=== PATIENT | female | born 1975 | race African-American/Black ===

== ENCOUNTER 2017-11-15 19:04 | Inpatient (IN) | payer BC ==
[~2017-11-15] VITALS: Ht 165.1 cm; Wt 97.1 kg
[~2017-11-15 19:04] MED LIST: ETOMIDATE 2MG/ML 10ML VIAL IV ONE
[2017-11-15] MEDS ORDERED: SUCCINYLCHOLINE CHLORIDE 200MG/10ML VIAL IV ONE (19:15)
[2017-11-15] MEDS ORDERED: ETOMIDATE 2MG/ML 10ML VIAL IV ONE (19:15)
[2017-11-15] MEDS ORDERED: PROPOFOL 10MG/ML 100ML 100 ML IV SCH (19:30)
[2017-11-15 19:49] LABS: CLARITY URINE CLEAR (CLEAR); COLOR URINE YELLOW (YELLOW); KETONES URINE NEGATIVE (NEGATIVE); LEUKOCYTE ESTERASE URINE NEGATIVE (NEGATIVE); NITRITE URINE NEGATIVE (NEGATIVE); OCCULT BLOOD URINE 2+ (NEGATIVE); PROTEIN URINE 1+ (NEGATIVE); SPECIFIC GRAVITY URINE 1.017 (1.005-1.030); UROBILINOGEN URINE 0.2 E.U./dL (0.2-1.0)
[2017-11-15] MEDS ORDERED: LORAZEPAM 2MG/ML CPJ IV ONE (20:00)
[2017-11-15] MEDS ORDERED: MIDAZOLAM HCL 50 MG in DEXTROSE 5% WATER 40 ML IV ONE ×2 (20:00→21:00)
[2017-11-15 20:03] LABS: *AMPHETAMINES SCREEN URINE NEGATIVE (NEGATIVE); *BARBITURATES SCREEN URINE NEGATIVE (NEGATIVE)
[2017-11-15 20:04] LABS: *BENZODIAZEPINES SCREEN URINE NEGATIVE (NEGATIVE); METHADONE URINE SCREEN NEGATIVE (NEGATIVE); OPIATES URINE SCREEN NEGATIVE (NEGATIVE); PHENCYCLIDINE URINE SCREEN NEGATIVE (NEGATIVE)
[2017-11-15 20:05] LABS: CANNABINOID URINE SCREEN NEGATIVE (NEGATIVE)
[2017-11-15 20:07] LABS: *COCAINE SCREEN URINE PRESUMTIVE POSITIVE (NEGATIVE)
[2017-11-15 20:42] LABS: BASOPHILS % 0.2 % (0.0-2.0); EOSINOPHILS % 0.8 % (0.0-5.0); HEMATOCRIT. 31.7 % (36.0-48.0); HEMOGLOBIN. 9.3 g/dL (12.0-16.0); LYMPHOCYTES % 40.3 % (20.0-50.0); MEAN CORPUSCULAR HEMOGLOBIN 23.2 pg (28.0-32.0); MEAN CORPUSCULAR VOLUME 79.2 fL (81.0-99.0); MEAN PLATELET VOLUME 8.1 fl (7.4-10.4); MONOCYTES % 7.3 % (2.0-8.0); NEUTROPHILS % 51.4 % (40.0-76.0); PLATELET 392 x1000/uL (130-400); RED CELL DISTRIBUTION WIDTH 19.8 % (11.6-14.6)
[2017-11-15 20:45] LABS: CHLORIDE 105 mEq/L (98-107)
[2017-11-15 20:47] LABS: PARTIAL THROMBOPLASTIN TIME 23.2 sec (23.4-31.0); PROTHROMBIN TIME 10.5 sec (9.4-11.6)
[2017-11-15 20:50] LABS: AMMONIA 56 uMol/L (<32); ETHANOL BLOOD < 10 mg/dL
[2017-11-15 20:54] LABS: CREATINE KINASE 80 IU/L (26-192)
[2017-11-15] MEDS ORDERED: SODIUM CHLORIDE 0.9% 1,000 ML IV ONE (22:15)
[2017-11-15 22:17] LABS: BG BASE EXCESS -3.7 mmol/L (-2.0-2.0); BG CARBOXYHEMOGLOBIN 0.2 % (0.5-1.5); BG DEOXYHEMOGLOBIN 6.4 % (0.0-5.0); BG FRACTION INSPIRED OXYGEN 100; BG HCO3 ACT 21.2 mmol/L (22.0-26.0); BG METHEMOGLOBIN 0.3 % (0.0-1.5); BG OXYGEN SATURATION 93.6 % (92.0-98.5); BG OXYHEMOGLOBIN 93.1 % (94.0-97.0); BG PH 7.365 (7.350-7.450); BG PO2 76.5 mmHg (75.0-100.0); BG SAMPLE SITE RIGHT RADIAL; BG TIDAL VOLUME(mL) 550 mL; BG TOTAL HEMOGLOBIN 9.9 g/dL (12.0-18.0); BG VENT MODE VENT - A/C; BG VENT RATE 14 set
[2017-11-15] MEDS: DEXT 5%/0.45% NACL 1000ML 1,000 ML IV SCH (23:14)
[2017-11-15] MEDS ORDERED: LORAZEPAM 2MG/ML CPJ IV PRN (23:15)
[2017-11-15] MEDS ORDERED: DEXTROSE 50% WATER 50ML SYRINGE IV PRN (23:15)
[2017-11-15] MEDS ORDERED: ACETAMINOPHEN 650MG SUPP PR PRN (23:15)
[2017-11-15] MEDS ORDERED: ONDANSETRON HCL 4MG/2ML VIAL IV PRN (23:15)
[2017-11-15] MEDS ORDERED: DIPHENHYDRAMINE 50MG/ML VIAL IV PRN (23:15)
[2017-11-15] MEDS ORDERED: CEFTRIAXONE 1 G PREMIX 50 ML IV ONE (23:30)
[2017-11-15] MEDS ORDERED: AZITHROMYCIN 500 MG in DEXT 5% WATER 250 ML IV SCH (23:30)
[2017-11-16] VITALS (70 sets, daily range): BP systolic 84–142; BP diastolic 44–106
[2017-11-16] MEDS ORDERED: PIPERACILLIN/TAZ 3.375G PREMIX 50 ML IV SCH (00:25)
[2017-11-16] MEDS ORDERED: VANCOMYCIN 750 MG PREMIX 150 ML IV SCH (03:00)
[2017-11-16] MEDS: PROPOFOL 10MG/ML 100ML 100 ML IV PRN ×2 (03:46→16:53)
[2017-11-16] MEDS: IPRATROPIUM/ALBUTEROL 0.5-3(2.5)MG/3ML NEB HHN SCH ×4 (03:54→21:08)
[2017-11-16] MEDS: BLOOD SUGAR DIAGNOSTIC STRIP TEST SCH ×3 (05:15→17:15)
[2017-11-16 06:09] LABS: BASOPHILS % 0.2 % (0.0-2.0); EOSINOPHILS % 0.1 % (0.0-5.0); HEMATOCRIT. 30.6 % (36.0-48.0); HEMOGLOBIN. 8.8 g/dL (12.0-16.0); LYMPHOCYTES % 12.9 % (20.0-50.0); MEAN CORPUSCULAR HEMOGLOBIN 23.9 pg (28.0-32.0); MEAN CORPUSCULAR VOLUME 83.1 fL (81.0-99.0); MEAN PLATELET VOLUME 8.2 fl (7.4-10.4); MONOCYTES % 5.2 % (2.0-8.0); NEUTROPHILS % 81.6 % (40.0-76.0); PLATELET 193 x1000/uL (130-400); RED BLOOD CELL COUNT 3.69 mill/uL (4.2-5.4)
[2017-11-16 06:17] LABS: CHLORIDE 109 mEq/L (98-107)
[2017-11-16] MEDS: INSULIN LISPRO 100 UNITS/ML SUBCUT SCH ×4 (07:00→20:56)
[2017-11-16] MEDS ORDERED: MAGNESIUM 2 G PREMIX 50 ML IV ONE (07:45)
[2017-11-16 08:26] LABS: BG BASE EXCESS -5.3 mmol/L (-2.0-2.0); BG CARBOXYHEMOGLOBIN 0.3 % (0.5-1.5); BG DEOXYHEMOGLOBIN 2.9 % (0.0-5.0); BG FRACTION INSPIRED OXYGEN 100; BG HCO3 ACT 19.4 mmol/L (22.0-26.0); BG METHEMOGLOBIN 0.2 % (0.0-1.5); BG OXYGEN SATURATION 97.1 % (92.0-98.5); BG OXYHEMOGLOBIN 96.6 % (94.0-97.0); BG PCO2 34.3 mmHg (35.0-45.0); BG SAMPLE SITE LEFT RADIAL; BG TIDAL VOLUME(mL) 550 mL; BG TOTAL HEMOGLOBIN 8.7 g/dL (12.0-18.0); BG VENT MODE VENT - A/C; BG VENT RATE 14 set
[2017-11-16] MEDS: PANTOPRAZOLE SODIUM 40 MG/VIAL IV SCH (08:37)
[2017-11-16] MEDS: PIPERACILLIN/TAZ 3.375G PREMIX 50 ML IV SCH ×2 (09:30→16:39)
[2017-11-16] MEDS ORDERED: MAGNESIUM SULFATE 2 GM in DEXTROSE 5% WATER 50 ML IV NR (10:30)
[2017-11-16] MEDS: DEXT 5%/0.45% NACL 1000ML 1,000 ML IV SCH (13:01)
[2017-11-16] MEDS: ACETYLCYSTEINE 100MG/ML 10% VIAL 4ML INH SCH (14:13)
[2017-11-16 16:28] LABS: CREATINE KINASE MB FRACTION 12.8 ng/mL (0.5-3.6)
[2017-11-16] MEDS ORDERED: VANCOMYCIN 1500MG in DEXTROSE 5% WATER 250ML IV NR (17:00)
[2017-11-16] MEDS: ENOXAPARIN 30MG/0.3ML SYR SUBCUT SCH (21:00)
[2017-11-16 23:20] LABS: CREATINE KINASE MB FRACTION 7.3 ng/mL (0.5-3.6)
[2017-11-17] VITALS (87 sets, daily range): BP systolic 95–140; BP diastolic 29–75
[2017-11-17] MEDS: DEXT 5%/0.45% NACL 1000ML 1,000 ML IV SCH ×3 (00:06→20:12)
[2017-11-17] MEDS: BLOOD SUGAR DIAGNOSTIC STRIP TEST SCH ×4 (00:06→17:46)
[2017-11-17] MEDS: PIPERACILLIN/TAZ 3.375G PREMIX 50 ML IV SCH ×3 (00:12→17:46)
[2017-11-17] MEDS: IPRATROPIUM/ALBUTEROL 0.5-3(2.5)MG/3ML NEB HHN SCH ×7 (00:53→23:54)
[2017-11-17] MEDS: ACETYLCYSTEINE 100MG/ML 10% VIAL 4ML INH SCH ×4 (00:54→23:54)
[2017-11-17] MEDS: PROPOFOL 10MG/ML 100ML 100 ML IV PRN ×4 (01:29→21:28)
[2017-11-17] MEDS: VANCOMYCIN 1 G PREMIX 200 ML IV SCH ×2 (05:00→18:41)
[2017-11-17 05:50] LABS: CREATINE KINASE MB FRACTION 7.4 ng/mL (0.5-3.6)
[2017-11-17] MEDS: INSULIN LISPRO 100 UNITS/ML SUBCUT SCH ×3 (06:43→17:46)
[2017-11-17 08:19] LABS: BG BASE EXCESS -2.1 mmol/L (-2.0-2.0); BG CARBOXYHEMOGLOBIN 0.6 % (0.5-1.5); BG DEOXYHEMOGLOBIN 0.8 % (0.0-5.0); BG FRACTION INSPIRED OXYGEN 50; BG HCO3 ACT 22.5 mmol/L (22.0-26.0); BG METHEMOGLOBIN 0.2 % (0.0-1.5); BG OXYGEN SATURATION 99.2 % (92.0-98.5); BG OXYHEMOGLOBIN 98.4 % (94.0-97.0); BG PCO2 37.1 mmHg (35.0-45.0); BG SAMPLE SITE RIGHT RADIAL; BG TIDAL VOLUME(mL) 550 mL; BG TOTAL HEMOGLOBIN 6.7 g/dL (12.0-18.0); BG VENT MODE VENT - A/C; BG VENT RATE 14 set
[2017-11-17] MEDS: ENOXAPARIN 30MG/0.3ML SYR SUBCUT SCH ×2 (09:04→20:13)
[2017-11-17] MEDS: PANTOPRAZOLE SODIUM 40 MG/VIAL IV SCH (09:04)
[2017-11-17] MEDS ORDERED: ACETAMINOPHEN 650MG/20.3ML UDC NG PRN (20:00)
[2017-11-18] VITALS (61 sets, daily range): BP systolic 101–150; BP diastolic 44–81
[2017-11-18] MEDS: BLOOD SUGAR DIAGNOSTIC STRIP TEST SCH ×4 (00:07→17:25)
[2017-11-18] MEDS: PIPERACILLIN/TAZ 3.375G PREMIX 50 ML IV SCH ×4 (00:15→20:19)
[2017-11-18] MEDS: PROPOFOL 10MG/ML 100ML 100 ML IV PRN ×4 (03:04→21:22)
[2017-11-18] MEDS: IPRATROPIUM/ALBUTEROL 0.5-3(2.5)MG/3ML NEB HHN SCH ×5 (04:01→23:40)
[2017-11-18] MEDS: VANCOMYCIN 1 G PREMIX 200 ML IV SCH ×2 (04:06→17:25)
[2017-11-18 04:48] LABS: BASOPHILS % 0.2 % (0.0-2.0); EOSINOPHILS % 0.7 % (0.0-5.0); MEAN CORPUSCULAR HEMOGLOBIN 23.6 pg (28.0-32.0); MEAN CORPUSCULAR VOLUME 76.1 fL (81.0-99.0); MEAN PLATELET VOLUME 8.5 fl (7.4-10.4); MONOCYTES % 7.5 % (2.0-8.0); NEUTROPHILS % 78.6 % (40.0-76.0); PLATELET 111 x1000/uL (130-400); RED BLOOD CELL COUNT 2.56 mill/uL (4.2-5.4); RED CELL DISTRIBUTION WIDTH 20.1 % (11.6-14.6)
[2017-11-18 04:57] LABS: CHLORIDE 104 mEq/L (98-107)
[2017-11-18 05:07] LABS: HEMATOCRIT. 19.5 % (36.0-48.0); HEMOGLOBIN. 6.1 g/dL (12.0-16.0)
[2017-11-18 05:13] LABS: CREATINE KINASE 433 IU/L (26-192)
[2017-11-18 05:15] LABS: CREATINE KINASE MB FRACTION 1.3 ng/mL (0.5-3.6)
[2017-11-18] MEDS: INSULIN LISPRO 100 UNITS/ML SUBCUT SCH ×4 (06:00→17:25)
[2017-11-18 07:10] LABS: BASOPHILS % 0.2 % (0.0-2.0); EOSINOPHILS % 0.9 % (0.0-5.0); LYMPHOCYTES % 14.7 % (20.0-50.0); MEAN CORPUSCULAR HEMOGLOBIN 23.7 pg (28.0-32.0); MEAN CORPUSCULAR VOLUME 76.4 fL (81.0-99.0); MEAN PLATELET VOLUME 8.6 fl (7.4-10.4); MONOCYTES % 8.7 % (2.0-8.0); NEUTROPHILS % 75.5 % (40.0-76.0); PLATELET 117 x1000/uL (130-400); RED BLOOD CELL COUNT 2.55 mill/uL (4.2-5.4); RED CELL DISTRIBUTION WIDTH 19.7 % (11.6-14.6)
[2017-11-18 07:16] LABS: HEMATOCRIT. 19.5 % (36.0-48.0)
[2017-11-18] MEDS: ACETYLCYSTEINE 100MG/ML 10% VIAL 4ML INH SCH ×3 (07:53→23:40)
[2017-11-18 08:24] LABS: BG CARBOXYHEMOGLOBIN 1.5 % (0.5-1.5); BG DEOXYHEMOGLOBIN 0.5 % (0.0-5.0); BG METHEMOGLOBIN 0.6 % (0.0-1.5); BG OXYGEN SATURATION 99.5 % (92.0-98.5); BG OXYHEMOGLOBIN 97.4 % (94.0-97.0); BG PCO2 35.2 mmHg (35.0-45.0); BG PH 7.451 (7.350-7.450); BG PO2 164.5 mmHg (75.0-100.0); BG SAMPLE SITE RIGHT RADIAL; BG TIDAL VOLUME(mL) 450 mL; BG TOTAL HEMOGLOBIN 6.1 g/dL (12.0-18.0); BG VENT MODE VENT - A/C; BG VENT RATE 14 set
[2017-11-18] MEDS: PANTOPRAZOLE SODIUM 40 MG/VIAL IV SCH (08:40)
[2017-11-18] MEDS: ENOXAPARIN 30MG/0.3ML SYR SUBCUT SCH (09:00)
[2017-11-18 09:32] LABS: BG FRACTION INSPIRED OXYGEN 35
[2017-11-18] MEDS: DEXT 5%/0.45% NACL 1000ML 1,000 ML IV SCH (15:20)
[2017-11-19] VITALS (52 sets, daily range): BP systolic 74–156; BP diastolic 39–92
[2017-11-19] MEDS: BLOOD SUGAR DIAGNOSTIC STRIP TEST SCH ×3 (00:23→18:00)
[2017-11-19] MEDS: PIPERACILLIN/TAZ 3.375G PREMIX 50 ML IV SCH ×4 (01:03→20:34)
[2017-11-19] MEDS: PROPOFOL 10MG/ML 100ML 100 ML IV PRN ×2 (01:55→04:52)
[2017-11-19 04:02] LABS: BASOPHILS % 0.5 % (0.0-2.0); EOSINOPHILS % 2.4 % (0.0-5.0); LYMPHOCYTES % 24.1 % (20.0-50.0); MEAN CORPUSCULAR HEMOGLOBIN 25.2 pg (28.0-32.0); MEAN CORPUSCULAR VOLUME 77.4 fL (81.0-99.0); MEAN PLATELET VOLUME 8.9 fl (7.4-10.4); MONOCYTES % 7.9 % (2.0-8.0); NEUTROPHILS % 65.1 % (40.0-76.0); PLATELET 118 x1000/uL (130-400); RED BLOOD CELL COUNT 2.61 mill/uL (4.2-5.4); RED CELL DISTRIBUTION WIDTH 19.2 % (11.6-14.6)
[2017-11-19 04:04] LABS: CHLORIDE 109 mEq/L (98-107)
[2017-11-19] MEDS: IPRATROPIUM/ALBUTEROL 0.5-3(2.5)MG/3ML NEB HHN SCH ×5 (04:10→20:36)
[2017-11-19 04:12] LABS: VANCOMYCIN TROUGH 16.7 ug/mL (5.0-10.0)
[2017-11-19 04:23] LABS: HEMATOCRIT. 20.2 % (36.0-48.0); HEMOGLOBIN. 6.6 g/dL (12.0-16.0)
[2017-11-19] MEDS: VANCOMYCIN 1 G PREMIX 200 ML IV SCH ×2 (04:33→16:33)
[2017-11-19] MEDS: ACETYLCYSTEINE 100MG/ML 10% VIAL 4ML INH SCH ×2 (07:36→16:23)
[2017-11-19 08:30] LABS: BG CARBOXYHEMOGLOBIN 0.9 % (0.5-1.5); BG DEOXYHEMOGLOBIN 0.8 % (0.0-5.0); BG FRACTION INSPIRED OXYGEN 35; BG HCO3 ACT 24.6 mmol/L (22.0-26.0); BG METHEMOGLOBIN 0.3 % (0.0-1.5); BG OXYGEN SATURATION 99.2 % (92.0-98.5); BG PH 7.477 (7.350-7.450); BG PO2 155.7 mmHg (75.0-100.0); BG SAMPLE SITE RIGHT RADIAL; BG TIDAL VOLUME(mL) 550 mL; BG TOTAL HEMOGLOBIN 6.7 g/dL (12.0-18.0); BG VENT MODE VENT - A/C; BG VENT RATE 14 set
[2017-11-19] MEDS: PANTOPRAZOLE SODIUM 40 MG/VIAL IV SCH (08:59)
[2017-11-19] MEDS ORDERED: LIDOCAINE HCL 1% 20ML VIAL (Pyxis) INJ ONE (09:58)
[2017-11-19] MEDS: FENTANYL CITRATE/PF 500 MCG in SODIUM CHLORIDE 0.9% 40 ML IV PRN ×2 (10:31→16:11)
[2017-11-19] MEDS: INSULIN LISPRO 100 UNITS/ML SUBCUT SCH ×3 (12:00→18:00)
[2017-11-19] MEDS: LACTULOSE 20G/30ML UDC PO SCH ×3 (12:02→23:15)
[2017-11-19] MEDS: QUETIAPINE FUMARATE 25MG TABLET PO SCH ×2 (12:02→20:34)
[2017-11-19 12:13] LABS: TOTAL IRON BINDING CAPACITY 278 ug/dL (250-450)
[2017-11-19] MEDS: DEXT 5%/0.45% NACL 1000ML 1,000 ML IV SCH (13:36)
[2017-11-19 15:33] LABS: HEMATOCRIT 26.5 % (36.0-48.0); HEMOGLOBIN 8.6 g/dL (12.0-16.0)
[2017-11-20] VITALS (55 sets, daily range): BP systolic 103–177; BP diastolic 56–91
[2017-11-20] MEDS: ACETYLCYSTEINE 100MG/ML 10% VIAL 4ML INH SCH ×2 (00:36→16:06)
[2017-11-20] MEDS: IPRATROPIUM/ALBUTEROL 0.5-3(2.5)MG/3ML NEB HHN SCH ×5 (00:37→16:06)
[2017-11-20] MEDS: PIPERACILLIN/TAZ 3.375G PREMIX 50 ML IV SCH ×4 (01:47→21:57)
[2017-11-20] MEDS: VANCOMYCIN 1 G PREMIX 200 ML IV SCH ×2 (04:07→17:38)
[2017-11-20] MEDS: FENTANYL CITRATE/PF 500 MCG in SODIUM CHLORIDE 0.9% 40 ML IV PRN ×3 (04:12→20:41)
[2017-11-20] MEDS: BLOOD SUGAR DIAGNOSTIC STRIP TEST SCH ×5 (06:00→23:24)
[2017-11-20] MEDS: INSULIN LISPRO 100 UNITS/ML SUBCUT SCH ×5 (06:00→23:24)
[2017-11-20] MEDS: LACTULOSE 20G/30ML UDC PO SCH (07:02)
[2017-11-20 07:11] LABS: BG BASE EXCESS 0.6 mmol/L (-2.0-2.0); BG CARBOXYHEMOGLOBIN 0.8 % (0.5-1.5); BG DEOXYHEMOGLOBIN 2.4 % (0.0-5.0); BG HCO3 ACT 25.2 mmol/L (22.0-26.0); BG METHEMOGLOBIN 0.4 % (0.0-1.5); BG OXYGEN SATURATION 97.6 % (92.0-98.5); BG OXYHEMOGLOBIN 96.4 % (94.0-97.0); BG PCO2 40.4 mmHg (35.0-45.0); BG PH 7.413 (7.350-7.450); BG PO2 106.1 mmHg (75.0-100.0); BG SAMPLE SITE RIGHT RADIAL; BG TIDAL VOLUME(mL) 500 mL; BG VENT MODE VENT - SIMV; BG VENT RATE 10 set
[2017-11-20] MEDS: PANTOPRAZOLE SODIUM 40 MG/VIAL IV SCH (08:59)
[2017-11-20] MEDS: QUETIAPINE FUMARATE 25MG TABLET PO SCH ×2 (08:59→20:40)
[2017-11-20 13:28] LABS: BASOPHILS % 0.3 % (0.0-2.0); EOSINOPHILS % 2.1 % (0.0-5.0); HEMATOCRIT. 26.5 % (36.0-48.0); HEMOGLOBIN. 8.6 g/dL (12.0-16.0); LYMPHOCYTES % 12.2 % (20.0-50.0); MEAN CORPUSCULAR HEMOGLOBIN 25.6 pg (28.0-32.0); MEAN PLATELET VOLUME 8.5 fl (7.4-10.4); MONOCYTES % 11.8 % (2.0-8.0); NEUTROPHILS % 73.6 % (40.0-76.0); PLATELET 134 x1000/uL (130-400); RED BLOOD CELL COUNT 3.35 mill/uL (4.2-5.4); RED CELL DISTRIBUTION WIDTH 19.3 % (11.6-14.6)
[2017-11-20 13:36] LABS: CHLORIDE 107 mEq/L (98-107)
[2017-11-20 13:38] LABS: INR 0.9; PROTHROMBIN TIME 9.6 sec (9.4-11.6)
[2017-11-20] MEDS: DEXT 5%/0.45% NACL 1000ML 1,000 ML IV SCH (16:29)
[2017-11-20] MEDS: METOCLOPRAMIDE HCL 10MG/2ML VIAL IV SCH (23:16)
[2017-11-21] VITALS (63 sets, daily range): BP systolic 125–171; BP diastolic 62–93
[2017-11-21] MEDS: IPRATROPIUM/ALBUTEROL 0.5-3(2.5)MG/3ML NEB HHN SCH ×6 (01:18→21:15)
[2017-11-21] MEDS: ACETYLCYSTEINE 100MG/ML 10% VIAL 4ML INH SCH ×4 (01:18→16:28)
[2017-11-21] MEDS: PIPERACILLIN/TAZ 3.375G PREMIX 50 ML IV SCH ×4 (03:50→21:28)
[2017-11-21] MEDS: METOCLOPRAMIDE HCL 10MG/2ML VIAL IV SCH ×3 (05:27→17:33)
[2017-11-21] MEDS: VANCOMYCIN 1 G PREMIX 200 ML IV SCH ×2 (05:27→17:33)
[2017-11-21] MEDS: INSULIN LISPRO 100 UNITS/ML SUBCUT SCH ×3 (05:34→17:33)
[2017-11-21] MEDS: BLOOD SUGAR DIAGNOSTIC STRIP TEST SCH ×3 (05:34→17:33)
[2017-11-21 05:38] LABS: BASOPHILS % 0.3 % (0.0-2.0); HEMATOCRIT. 28.2 % (36.0-48.0); HEMOGLOBIN. 9.1 g/dL (12.0-16.0); LYMPHOCYTES % 12.2 % (20.0-50.0); MEAN CORPUSCULAR HEMOGLOBIN 25.9 pg (28.0-32.0); MEAN CORPUSCULAR VOLUME 79.9 fL (81.0-99.0); MEAN PLATELET VOLUME 8.6 fl (7.4-10.4); MONOCYTES % 10.9 % (2.0-8.0); NEUTROPHILS % 75.6 % (40.0-76.0); PLATELET 151 x1000/uL (130-400); RED BLOOD CELL COUNT 3.53 mill/uL (4.2-5.4); RED CELL DISTRIBUTION WIDTH 19.2 % (11.6-14.6)
[2017-11-21 05:41] LABS: CHLORIDE 105 mEq/L (98-107)
[2017-11-21] MEDS: PANTOPRAZOLE SODIUM 40 MG/VIAL IV SCH (09:16)
[2017-11-21] MEDS: QUETIAPINE FUMARATE 25MG TABLET PO SCH ×2 (09:16→21:28)
[2017-11-21 10:27] LABS: BG CARBOXYHEMOGLOBIN 0.4 % (0.5-1.5); BG DEOXYHEMOGLOBIN 5.3 % (0.0-5.0); BG FRACTION INSPIRED OXYGEN 30; BG METHEMOGLOBIN 0.2 % (0.0-1.5); BG OXYGEN SATURATION 94.7 % (92.0-98.5); BG OXYHEMOGLOBIN 94.1 % (94.0-97.0); BG PCO2 43.7 mmHg (35.0-45.0); BG PH 7.408 (7.350-7.450); BG PO2 79.2 mmHg (75.0-100.0); BG PRESSURE SUPPORT 8; BG SAMPLE SITE RIGHT RADIAL; BG TOTAL HEMOGLOBIN 9.8 g/dL (12.0-18.0); BG VENT MODE VENT - CPAP
[2017-11-21] MEDS: DEXT 5%/0.45% NACL 1000ML 1,000 ML IV SCH (11:34)
[2017-11-22] VITALS: BP 144/64
[2017-11-22] MEDS: IPRATROPIUM/ALBUTEROL 0.5-3(2.5)MG/3ML NEB HHN SCH ×5 (00:19→19:48)
[2017-11-22] MEDS: BLOOD SUGAR DIAGNOSTIC STRIP TEST SCH ×5 (00:34→23:59)
[2017-11-22] MEDS: METOCLOPRAMIDE HCL 10MG/2ML VIAL IV SCH ×4 (00:35→19:01)
[2017-11-22 04:00] VITALS: BP 122/75
[2017-11-22] MEDS: PIPERACILLIN/TAZ 3.375G PREMIX 50 ML IV SCH ×4 (04:21→22:00)
[2017-11-22] MEDS: INSULIN LISPRO 100 UNITS/ML SUBCUT SCH ×4 (06:00→18:00)
[2017-11-22] MEDS: VANCOMYCIN 1 G PREMIX 200 ML IV SCH ×2 (06:13→17:00)
[2017-11-22 08:00] VITALS: BP 125/63
[2017-11-22] MEDS: QUETIAPINE FUMARATE 25MG TABLET PO SCH ×2 (09:00→09:31)
[2017-11-22] MEDS: PANTOPRAZOLE SODIUM 40 MG/VIAL IV SCH (09:31)
[2017-11-22 12:00] VITALS: BP 133/69
[2017-11-22 16:00] VITALS: BP 116/56
[2017-11-22 20:00] VITALS: BP 141/89
[2017-11-22] MEDS ORDERED: TEMAZEPAM 15MG CAPSULE PO PRN (20:30)
[2017-11-22] MEDS ORDERED: SIMETHICONE 80MG TABLET CHEW PO PRN (20:30)
[2017-11-22] MEDS ORDERED: MAGNESIUM/ALUMINUM HYDROXIDE/SIMETHICONE 30ML UDC PO PRN (20:30)
[2017-11-23] VITALS: BP 139/80
[2017-11-23] MEDS: IPRATROPIUM/ALBUTEROL 0.5-3(2.5)MG/3ML NEB HHN SCH ×6 (00:51→20:45)
[2017-11-23] MEDS: ACETAMINOPHEN 325MG TABLET PO PRN (00:59)
[2017-11-23 04:00] VITALS: BP_SYST 133; BP_SYST 137; BP_DIAS 68
[2017-11-23] MEDS: INSULIN LISPRO 100 UNITS/ML SUBCUT SCH ×4 (06:00→18:00)
[2017-11-23] MEDS: BLOOD SUGAR DIAGNOSTIC STRIP TEST SCH ×3 (06:36→18:48)
[2017-11-23 07:22] LABS: CHLORIDE 102 mEq/L (98-107)
[2017-11-23 07:26] LABS: BASOPHILS % 0.7 % (0.0-2.0); EOSINOPHILS % 1.6 % (0.0-5.0); HEMOGLOBIN. 8.6 g/dL (12.0-16.0); LYMPHOCYTES % 20.6 % (20.0-50.0); MEAN CORPUSCULAR HEMOGLOBIN 25.2 pg (28.0-32.0); MEAN CORPUSCULAR VOLUME 78.8 fL (81.0-99.0); MEAN PLATELET VOLUME 8.9 fl (7.4-10.4); MONOCYTES % 9.7 % (2.0-8.0); NEUTROPHILS % 67.4 % (40.0-76.0); PLATELET 243 x1000/uL (130-400); RED BLOOD CELL COUNT 3.43 mill/uL (4.2-5.4); RED CELL DISTRIBUTION WIDTH 19.5 % (11.6-14.6)
[2017-11-23 08:00] VITALS: BP 149/53
[2017-11-23] MEDS: POTASSIUM CHLORIDE 20MEQ TABLET SR PO SCH ×2 (10:30→12:00)
[2017-11-23] MEDS: PANTOPRAZOLE SODIUM 40 MG/VIAL IV SCH (10:30)
[2017-11-23 12:00] VITALS: BP 148/76
[2017-11-23] MEDS ORDERED: POTASSIUM CHLORIDE 20MEQ TABLET SR PO NR (14:15)
[2017-11-23 16:00] VITALS: BP 130/72
[2017-11-23] MEDS: FERROUS SULFATE 325MG TABLET PO SCH (18:52)
[2017-11-23 20:00] VITALS: BP 149/52
[2017-11-24] VITALS: BP 140/59
[2017-11-24] MEDS: BLOOD SUGAR DIAGNOSTIC STRIP TEST SCH ×3 (00:16→12:01)
[2017-11-24] MEDS: IPRATROPIUM/ALBUTEROL 0.5-3(2.5)MG/3ML NEB HHN SCH ×5 (00:58→15:48)
[2017-11-24 04:00] VITALS: BP_SYST 130; BP_SYST 146; BP_DIAS 62; BP_DIAS 78
[2017-11-24] MEDS: ACETAMINOPHEN 325MG TABLET PO PRN (04:23)
[2017-11-24] MEDS: INSULIN LISPRO 100 UNITS/ML SUBCUT SCH ×3 (05:40→12:00)
[2017-11-24 08:00] VITALS: BP 135/52
[2017-11-24] MEDS: PANTOPRAZOLE SODIUM 40 MG/VIAL IV SCH (08:11)
[2017-11-24] MEDS: FERROUS SULFATE 325MG TABLET PO SCH ×2 (08:11→12:11)
[2017-11-24 12:00] VITALS: BP 146/100
[2017-11-24] MEDS ORDERED: POTASSIUM CHLORIDE 20MEQ TABLET SR PO SCH ×2 (12:00→14:00)
[2017-11-24 15:46] VITALS: BP 136/60
== END 2017-11-24 17:50 | disposition home or self-care (01) | DRG 870 ==
LOC: EDBEDREQSVC 20:13 → EDBEDREQ 20:13 → ER 23:03 → MICUSO 23:04 → EDBD 23:04 → ENRESERV 23:15 → 5WST 11-21 23:25
PROVIDERS: ADMIT Internal Medicine; ATTEND Internal Medicine
PROC: 5A1955Z Respiratory Ventilation, Greater than 96 Consecutive Hours (ICD-10-PCS; 2017-11-15)
PROC: 0BH17EZ Insertion of Endotracheal Airway into Trachea, Via Natural or Artificial Opening (ICD-10-PCS; 2017-11-15)
PROC: 30233N1 Transfusion of Nonautologous Red Blood Cells into Peripheral Vein, Percutaneous Approach (ICD-10-PCS; principal; 2017-11-18)
PROC: 05HY33Z Insertion of Infusion Device into Upper Vein, Percutaneous Approach (ICD-10-PCS; 2017-11-19)
PROC: B54MZZA Ultrasonography of Right Upper Extremity Veins, Guidance (ICD-10-PCS; 2017-11-19)
DX: A41.9 Sepsis, unspecified organism (principal); G92 Toxic encephalopathy; J96.00 Acute respiratory failure, unspecified whether with hypoxia or hypercapnia; J69.0 Pneumonitis due to inhalation of food and vomit; R40.20 Unspecified coma; I21.4 Non-ST elevation (NSTEMI) myocardial infarction; G91.9 Hydrocephalus, unspecified; T40.5X1A Poisoning by cocaine, accidental (unintentional), initial encounter; D64.9 Anemia, unspecified; E87.6 Hypokalemia; F14.10 Cocaine abuse, uncomplicated; I10 Essential (primary) hypertension; E83.42 Hypomagnesemia; Z79.899 Other long term (current) drug therapy
CPT/HCPCS: 31500; 36415; 36569; 36600; 70450; 71045; 74018; 76937; 80048; 80051; 80053; 80202; 80305; 81003; 81025; 82140; 82270; 82375; 82550; 82553; 82805; 82962; 83036; 83540; 83550; 83735; 84100; 84443; 84478; 84484; 85014; 85018; 85025; 85610; 85730; 86850; 86900; 86920; 87040; 89055; 92610; 93005; 93306; 93970; 94002; 94003; 94640; 96365; 96367; 96368; 96375; 97116; 97161; 99285; C1725; C9113; G0482; J0456; J0696; J1200; J1650; J1815; J2060; J2250; J2405; J2543; J2704; J2765; J3010; J3370; J3475; J3490; J7030; J7050; J7060; J7608; J7620; P9016; A4315